=== PATIENT | male | born 1985 | race Caucasian/White ===

== ENCOUNTER 2017-08-04 20:16 | Emergency (ER) | payer BC ==
[2017-08-04 20:22] VITALS: BP 141/100; PULSE 86; RESP 18; TEMP 98.4; O2SAT 99
--- NOTE | 2017-08-04 20:31 | PD ---
HPI Chief Complaint: Chest Pain Time Seen by Provider: 20:21 Travel History International Travel<30 days: No Contact w/Intl Traveler<30days: No Traveled to known affect area: No History of Present Illness HPI 32-year-old male with no significant medical history presents the emergency department for evaluation of acute onset chest pain that began around 4 PM today. Patient states it is anterior he had there is an area on the left and on the right of his sternum that hurts when he takes a deep breath. They are also tender when he palpates them. He denies any cough or chest congestion. He has not been recently ill. He denies any significant cardiac history or family cardiac history with prior to 50 years of age. He denies any cough or chest congestion. He has no other symptoms to report. [facility] Past Medical History Medical History: Denies Significant Hx Past Surgical History Surgical History: No Previous Surgery Social History Alcohol Use: No Tobacco Use: No Substance Use: No Allergies-Medications (Allergen,Severity, Reaction): Coded Allergies: Sulfa (Sulfonamide Antibiotics) (Verified Allergy, Severe, 08/04/17) Reported Meds & Prescriptions Reported Meds & Active Scripts Active No Active Prescriptions or Reported Medications Review of Systems Except as stated in HPI: all other systems reviewed are Neg Physical Exam Narrative GENERAL: Well-nourished male patient, no acute distress SKIN: Focused skin assessment warm/dry. HEAD: Atraumatic. Normocephalic. EYES: Pupils equal and round. No scleral icterus. No injection or drainage. ENT: No nasal bleeding or discharge. Mucous membranes pink and moist. NECK: Trachea midline. No JVD. CARDIOVASCULAR: Tachycardic rate and rhythm. No murmur appreciated. RESPIRATORY: No accessory muscle use. Clear to auscultation. Tenderness elicited to palpation of the anterior thoracic cage. No crepitus. Even respirations. Breath sounds equal bilaterally. GASTROINTESTINAL: Abdomen soft, non-tender, nondistended. Hepatic and splenic margins not palpable. MUSCULOSKELETAL: No obvious deformities. No clubbing. No cyanosis. No edema. NEUROLOGICAL: Awake and alert. No obvious cranial nerve deficits. Motor grossly within normal limits. Normal speech. PSYCHIATRIC: Appropriate mood and affect; insight and judgment normal. Data Data Last Documented VS Vital Signs Date Time Temp Pulse Resp B/P (MAP) Pulse Ox O2 Delivery O2 Flow Rate FiO2 08/04/17 21:20 16 100 Room Air 08/04/17 20:25 83 08/04/17 20:22 98.4 141/100 (114) Orders Orders Electrocardiogram (08/04/17 20:34) Basic Metabolic Panel (Bmp) (08/04/17 20:34) Ckmb (Isoenzyme) Profile (08/04/17 20:34) Complete Blood Count With Diff (08/04/17 20:34) Magnesium (Mg) (08/04/17 20:34) Prothrombin Time / Inr (Pt) (08/04/17 20:34) Act Partial Throm Time (Ptt) (08/04/17 20:34) Troponin I (08/04/17 20:34) Lipase (08/04/17 20:34) Ecg Monitoring (08/04/17 20:34) Bilateral Bp Monitoring (08/04/17 20:34) Iv Access Insert/Monitor (08/04/17 20:34) Oximetry (08/04/17 20:34) Oxygen Administration (08/04/17 20:34) Sodium Chloride 0.9% Flush (Ns Flush) (08/04/17 20:45) Chest, Pa & Lat (08/04/17 20:34) Sodium Chlor 0.9% 1000 Ml Inj (Ns 1000 M (08/04/17 20:45) Ketorolac Inj (Toradol Inj) (08/04/17 20:45) CKMB (08/04/17 20:48) CKMB% (08/04/17 20:48) Ed Discharge Order (08/04/17 21:53) Labs Laboratory Tests Test 08/04/17 20:48 White Blood Count 5.6 TH/MM3 Red Blood Count 5.38 MIL/MM3 Hemoglobin 16.5 GM/DL Hematocrit 47.1 % Mean Corpuscular Volume 87.5 FL Mean Corpuscular Hemoglobin 30.6 PG Mean Corpuscular Hemoglobin Concent 35.0 % Red Cell Distribution Width 13.5 % Platelet Count 216 TH/MM3 Mean Platelet Volume 8.4 FL Neutrophils (%) (Auto) 66.0 % Lymphocytes (%) (Auto) 22.7 % Monocytes (%) (Auto) 8.8 % Eosinophils (%) (Auto) 1.9 % Basophils (%) (Auto) 0.6 % Neutrophils # (Auto) 3.7 TH/MM3 Lymphocytes # (Auto) 1.3 TH/MM3 Monocytes # (Auto) 0.5 TH/MM3 Eosinophils # (Auto) 0.1 TH/MM3 Basophils # (Auto) 0.0 TH/MM3 CBC Comment DIFF FINAL Differential Comment Prothrombin Time 10.2 SEC Prothromb Time International Ratio 1.0 RATIO Activated Partial Thromboplast Time 21.7 SEC Blood Urea Nitrogen 11 MG/DL Creatinine 1.18 MG/DL Random Glucose 99 MG/DL Calcium Level 9.3 MG/DL Magnesium Level 2.2 MG/DL Sodium Level 138 MEQ/L Potassium Level 3.9 MEQ/L Chloride Level 105 MEQ/L Carbon Dioxide Level 24.9 MEQ/L Anion Gap 8 MEQ/L Estimat Glomerular Filtration Rate 72 ML/MIN Total Creatine Kinase 160 U/L Creatine Kinase MB 0.7 NG/ML Troponin I LESS THAN 0.02 NG/ML Lipase 147 U/L MDM Medical Decision Making Medical Screen Exam Complete: Yes Emergency Medical Condition: Yes Medical Record Reviewed: Yes Differential Diagnosis Chest wall pain versus costochondritis versus pleuritic pain versus muscle strain versus anxiety Narrative Course 32-year-old male presents to the emergency department for evaluation of chest wall pain. Patient appears without distress. He is mildly tachycardic. Patient does have tenderness elicited to palpation of the anterior chest. There is no crepitus. Chest x-rays without acute concern. Lab work is reassuring. Patient is given IV fluids and Toradol with near resolution of his pain. He is encouraged to follow-up with primary care provider and return immediately with any acute worsening symptoms. Diagnosis Primary Impression: Chest wall pain Referrals: Primary Care Physician Patient Instructions: Chest Wall Pain (ED), General Instructions Additional Instructions: Follow-up with a primary care provider Return immediately with acute worsening symptoms Med/Other Pt SpecificInfo: Prescription(s) given Scripts Prednisone (Prednisone) 50 Mg Tab 50 MG PO DAILY for 5 Days, #5 TAB 0 Refills Prov: Argelia Newton AJ 08/04/17 Disposition: 01 DISCHARGE HOME Condition: Stable Newton,Argelia ROCHA Aug 04, 2017 20:31
[2017-08-04] MEDS ORDERED: KETOROLAC TROMETHAMINE 30 MG/ML (IVP) VIAL IV PUSH ONE (20:45)
[2017-08-04] MEDS ORDERED: SODIUM CHLORIDE 0.9% FLUSH 10 ML FLUSH IVF PRN (20:45)
[2017-08-04] MEDS ORDERED: SODIUM CHLOR 0.9% 1000 ML INJ 1,000 ML IV ONE (20:45)
[2017-08-04 21:04] LABS: AUTOMATED NEUTROPHIL # 3.7 TH/MM3 (1.8-7.7); BASOPHIL % 0.6 % (0.0-2.0); EOSINOPHIL # 0.1 TH/MM3 (0-0.4); EOSINOPHIL % 1.9 % (0.0-4.0); HEMATOCRIT 47.1 % (39.0-51.0); HEMOGLOBIN 16.5 GM/DL (13.0-17.0); LYMPH % 22.7 % (9.0-44.0); LYMPHOCYTE # 1.3 TH/MM3 (1.0-4.8); MEAN CELL VOLUME 87.5 FL (80.0-100.0); MEAN CORPUSCULAR HEMOGLOBIN 30.6 PG (27.0-34.0); MEAN PLATELET VOLUME 8.4 FL (7.0-11.0); MONO % 8.8 % (0.0-8.0); MONOCYTE # 0.5 TH/MM3 (0-0.9); PLATELET COUNT 216 TH/MM3 (150-450); RED BLOOD COUNT 5.38 MIL/MM3 (4.50-5.90); RED CELL DISTRIBUTION WIDTH 13.5 % (11.6-17.2); WHITE BLOOD COUNT 5.6 TH/MM3 (4.0-11.0)
[2017-08-04 21:17] LABS: PROTHROMBIN TIME - PATIENT 10.2 SEC (9.8-11.6)
[2017-08-04 21:20] VITALS: RESP 16; O2SAT 100
[2017-08-04 21:21] LABS: BICARBONATE 24.9 MEQ/L (21.0-32.0); BLOOD UREA NITROGEN 11 MG/DL (7-18); CALCIUM 9.3 MG/DL (8.5-10.1); CHLORIDE 105 MEQ/L (98-107); CREATININE 1.18 MG/DL (0.60-1.30); GLOMERULAR FILTRATION RATE 72 ML/MIN (>89); GLUCOSE,RANDOM 99 MG/DL (74-106); MAGNESIUM 2.2 MG/DL (1.5-2.5); SODIUM (NA) 138 MEQ/L (136-145)
[2017-08-04 21:26] LABS: TROPONIN I LESS THAN 0.02 NG/ML (0.02-0.05)
--- NOTE | 2017-08-04 21:30 | RADRPT ---
EXAM DATE: 08/04/2017 9:09 PM EDT AGE/SEX: 32 years / Male INDICATIONS: Chest pain. CLINICAL DATA: This is the patient's initial encounter. Patient reports that signs and symptoms have been present for 1 day and indicates a pain score of 5/10. MEDICAL/SURGICAL HISTORY: None. None. COMPARISON: No prior exams available for comparison. FINDINGS: PA and lateral views of the chest demonstrate the lungs to be symmetrically aerated without evidence of mass, infiltrate or effusion. The cardiomediastinal contours are unremarkable. Osseous structures are intact. CONCLUSION: No active disease Electronically signed by: Adam Irvin MD 08/04/2017 9:29 PM EDT
[2017-08-04] MEDS ORDERED: PRED50 PO (22:06)
--- NOTE | 2017-08-05 12:39 | EKG ---
Date Performed: 08/04/2017 Time Performed: 20:25:19 PTAGE: 32 years EKG: Sinus rhythm NONSPECIFIC T-WAVE ABNORMALITY BORDERLINE ECG NO PREVIOUS TRACING DOCTOR: Hilario Puri Interpretating Date/Time 08/05/2017 12:36:43
== END 2017-08-04 22:32 | disposition home or self-care (01) ==
LOC: NEPC 20:16
DX: R07.89 Other chest pain (principal); R94.31 Abnormal electrocardiogram [ECG] [EKG]
CPT/HCPCS: 71046; 80048; 82550; 82552; 83690; 83735; 84484; 85025; 85610; 85730; 93005; 96374; 99285; J1885; J7030